=== PATIENT | male | born 1980 | race Caucasian/White ===

== ENCOUNTER 2020-11-02 21:18 | Inpatient (IN) ==
[2020-11-02] MEDS ORDERED: SODIUM CHLORIDE 0.9% 1,000 ML IV STA (21:41)
[2020-11-02] MEDS ORDERED: THIAMINE 200 MG/2 ML VIAL IV STA (21:41)
[2020-11-02] MEDS ORDERED: LORazepam 2 MG/1 ML VIAL IV STA (21:42)
[2020-11-02 22:22] LABS: Basophils # 0.1 10*3/uL (0.0-0.2); Basophils % 1.1 % (0.0-0.8); Eosinophils # 0.1 10*3/uL (0.0-0.87); Eosinophils % 1.9 % (0.00-10.9); Hematocrit 42.7 VOL% (42.0-52.0); Hemoglobin 14.4 GM/DL (14.0-18.0); Immature Granulocytes % 0.4 %; Immature Granulocytes Absolute 0.02 #; Lymphocytes # 1.3 10*3/uL (1.4-4.0); Lymphocytes % 26.7 % (21.2-54.2); Mean Corpuscular HGB Conc 33.7 GM/DL (32-36); Mean Corpuscular Volume 97.9 FL (87-102); Mean Platelet Volume 10.2 FL (9.6-12.0); Monocytes % 7.6 % (1.7-12.7); Neutrophils % 62.3 % (38.7-73.9); Platelet Count 126 T/CUMM (130-400); Red Blood Count 4.36 MC/CUMM (3.8-5.5); Red Cell Distribution Width 13.3 % (9.3-17.3); White Blood Count 4.8 T/CUMM (4-12)
[2020-11-02 22:39] LABS: Albumin 4.1 G/DL (3.4-5.0); Bilirubin,Total 2.1 MG/DL (0.2-1.0); Osmolality,Calculated 264.5 MOS/KG (273-304); Potassium 3.2 MMOL/L (3.5-5.1); Total Protein 8.7 G/DL (6.4-8.2)
[2020-11-02 22:40] LABS: Bilirubin,Urine Moderate mg/dL (Negative); Blood, Urine Moderate mg/dL (Negative); Glucose,Urine (UA) Negative (Negative); Hyaline Casts,Urine 48 /LPF (0-3); Ketones,Urine 5 mg/dL (Negative); Mucus,Urine Many /LPF (Occasional); Nitrite,Urine Negative (Negative); Protein,Urine 100 MG/DL; RBC,Urine 4 /HPF (0-4); Squamous Epithelial Cell,Urine Occasional /HPF (0-10); Urine Appearance Slightly Hazy (Clear); Urine Color Amber (Yellow); Urine Specific Gravity 1.031 (1.001-1.035); WBC,Urine 12 /HPF (0-6)
[2020-11-02 22:44] LABS: Barbiturates Screen,Urine Negative (Negative); Benzodiazepines Screen,Urine Negative (Negative); Cannabinoid Screen,Urine Negative (Negative); Opiate Screen,Urine Positive (Negative); Phencyclidine Screen,Urine Negative (Negative)
[2020-11-02] MEDS ORDERED: MAGNESIUM SULF RIDER 2 GM in PREMIX 1 EACH IV STA (22:46)
[2020-11-03] MEDS ORDERED: GLUCAGON 1 MG VIAL IM PRN (01:23)
[2020-11-03] MEDS ORDERED: METHOCARBAMOL 750 MG TABLET PO PRN (01:23)
[2020-11-03] MEDS ORDERED: DEXTROSE 50% 25 GM/50 ML VIAL IV PRN (01:23)
[2020-11-03] MEDS ORDERED: ACETAMINOPHEN 325 MG TABLET PO PRN (01:23)
[2020-11-03] MEDS ORDERED: DICYCLOMINE 10 MG CAPSULE PO PRN (01:23)
[2020-11-03] MEDS ORDERED: ONDANSETRON 4 MG/2 ML VIAL IV PRN (01:23)
[2020-11-03] MEDS ORDERED: LACTULOSE 20 GM/30 ML UDCUP PO ONE (01:30)
[2020-11-03] MEDS ORDERED: POTASSIUM CHLORIDE 20 MEQ TABLET PO ONE ×2 (01:32→09:00)
[2020-11-03] MEDS ORDERED: POTASSIUM CHLORIDE 20 MEQ TABLET PO PRN (01:32)
[2020-11-03] MEDS: chlordiazePOXIDE 25 MG CAPSULE PO SCH ×4 (02:29→21:20)
[2020-11-03] MEDS: ENOXAPARIN 40 MG/0.4 ML SYRINGE SUBCUT SCH (02:29)
[2020-11-03 07:45] LABS: Albumin 3.5 G/DL (3.4-5.0); Bilirubin,Total 1.7 MG/DL (0.2-1.0); Calcium 8.2 MG/DL (8.5-10.1); Osmolality,Calculated 267.2 MOS/KG (273-304); Total Protein 7.7 G/DL (6.4-8.2)
[2020-11-03] MEDS ORDERED: MAGNESIUM SULF RIDER 2 GM in PREMIX 1 EACH IV ONE (07:50)
[2020-11-03] MEDS: MULTIVITAMIN (CENTRUM) TABLET PO SCH (08:55)
[2020-11-03] MEDS: PANTOPRAZOLE 40 MG TABLET PO SCH (08:55)
[2020-11-03] MEDS: FOLIC ACID 1 MG TABLET PO SCH (08:55)
[2020-11-03] MEDS: LORazepam 2 MG/1 ML VIAL IV PRN ×2 (08:55→15:24)
[2020-11-03] MEDS: THIAMINE 100 MG TABLET PO SCH (08:55)
[2020-11-03] MEDS: LACTULOSE 20 GM/30 ML UDCUP PO SCH ×3 (10:14→21:20)
[2020-11-04] MEDS: LORazepam 2 MG/1 ML VIAL IV PRN ×3 (01:59→18:05)
[2020-11-04] MEDS: chlordiazePOXIDE 25 MG CAPSULE PO SCH ×3 (01:59→17:42)
[2020-11-04 06:01] LABS: Basophils % 1.1 % (0.0-0.8); Eosinophils # 0.1 10*3/uL (0.0-0.87); Eosinophils % 3.1 % (0.00-10.9); Hematocrit 39.5 VOL% (42.0-52.0); Hemoglobin 13.4 GM/DL (14.0-18.0); Immature Granulocytes % 0.6 %; Immature Granulocytes Absolute 0.02 #; Lymphocytes # 0.9 10*3/uL (1.4-4.0); Lymphocytes % 25.6 % (21.2-54.2); Mean Corpuscular HGB Conc 33.9 GM/DL (32-36); Mean Corpuscular Volume 96.8 FL (87-102); Mean Platelet Volume 10.2 FL (9.6-12.0); Monocytes % 9.4 % (1.7-12.7); Neutrophils % 60.2 % (38.7-73.9); Platelet Count 109 T/CUMM (130-400); Red Blood Count 4.08 MC/CUMM (3.8-5.5); Red Cell Distribution Width 13.2 % (9.3-17.3); White Blood Count 3.5 T/CUMM (4-12)
[2020-11-04 06:16] LABS: Albumin 3.4 G/DL (3.4-5.0); Bilirubin,Total 1.4 MG/DL (0.2-1.0); Calcium 8.7 MG/DL (8.5-10.1); Potassium 3.1 MMOL/L (3.5-5.1); Total Protein 7.5 G/DL (6.4-8.2)
[2020-11-04] MEDS: PANTOPRAZOLE 40 MG TABLET PO SCH (08:32)
[2020-11-04] MEDS: LACTULOSE 20 GM/30 ML UDCUP PO SCH ×3 (08:32→21:13)
[2020-11-04] MEDS: FOLIC ACID 1 MG TABLET PO SCH (08:32)
[2020-11-04] MEDS: THIAMINE 100 MG TABLET PO SCH (08:33)
[2020-11-04] MEDS: MULTIVITAMIN (CENTRUM) TABLET PO SCH (08:33)
[2020-11-04] MEDS: ENOXAPARIN 40 MG/0.4 ML SYRINGE SUBCUT SCH (08:35)
[2020-11-04] MEDS ORDERED: LORazepam 2 MG/1 ML VIAL IV ONE (09:00)
[2020-11-04] MEDS ORDERED: POTASSIUM CHLORIDE 20 MEQ TABLET PO ONE (09:00)
[2020-11-04] MEDS: ESCITALOPRAM 10 MG TABLET PO SCH (10:08)
[2020-11-04] MEDS: amLODIPine 10 MG TABLET PO SCH (14:38)
[2020-11-04] MEDS: ATORVASTATIN 20 MG TABLET PO SCH (14:38)
[2020-11-04] MEDS: METOPROLOL SUCCINATE XL 50 MG TABLET PO SCH (14:38)
[2020-11-05] MEDS: chlordiazePOXIDE 25 MG CAPSULE PO SCH ×3 (01:31→18:01)
[2020-11-05 06:06] LABS: Basophils % 0.8 % (0.0-0.8); Eosinophils # 0.1 10*3/uL (0.0-0.87); Hematocrit 40.1 VOL% (42.0-52.0); Hemoglobin 13.7 GM/DL (14.0-18.0); Immature Granulocytes % 1.3 %; Immature Granulocytes Absolute 0.05 #; Lymphocytes # 0.9 10*3/uL (1.4-4.0); Lymphocytes % 23.4 % (21.2-54.2); Mean Corpuscular HGB Conc 34.2 GM/DL (32-36); Mean Corpuscular Volume 95.9 FL (87-102); Mean Platelet Volume 10.4 FL (9.6-12.0); Monocytes % 11.3 % (1.7-12.7); Neutrophils % 60.2 % (38.7-73.9); Platelet Count 124 T/CUMM (130-400); Red Blood Count 4.18 MC/CUMM (3.8-5.5); Red Cell Distribution Width 13.3 % (9.3-17.3); White Blood Count 3.7 T/CUMM (4-12)
[2020-11-05 06:37] LABS: Osmolality,Calculated 271.8 MOS/KG (273-304); Potassium 3.8 MMOL/L (3.5-5.1)
[2020-11-05] MEDS: ESCITALOPRAM 10 MG TABLET PO SCH (09:12)
[2020-11-05] MEDS: ATORVASTATIN 20 MG TABLET PO SCH (09:12)
[2020-11-05] MEDS: PANTOPRAZOLE 40 MG TABLET PO SCH (09:12)
[2020-11-05] MEDS: METOPROLOL SUCCINATE XL 50 MG TABLET PO SCH (09:12)
[2020-11-05] MEDS: MULTIVITAMIN (CENTRUM) TABLET PO SCH (09:12)
[2020-11-05] MEDS: FOLIC ACID 1 MG TABLET PO SCH (09:12)
[2020-11-05] MEDS: LACTULOSE 20 GM/30 ML UDCUP PO SCH ×3 (09:12→20:29)
[2020-11-05] MEDS: ENOXAPARIN 40 MG/0.4 ML SYRINGE SUBCUT SCH (09:12)
[2020-11-05] MEDS: THIAMINE 100 MG TABLET PO SCH (09:13)
[2020-11-05] MEDS: amLODIPine 10 MG TABLET PO SCH (09:13)
[2020-11-05] MEDS: LORazepam 2 MG/1 ML VIAL IV PRN ×4 (09:36→23:43)
[2020-11-06 06:03] LABS: Calcium 8.9 MG/DL (8.5-10.1); Potassium 3.2 MMOL/L (3.5-5.1)
[2020-11-06] MEDS ORDERED: POTASSIUM CHLORIDE 20 MEQ TABLET PO ONE (07:07)
[2020-11-06] MEDS: FOLIC ACID 1 MG TABLET PO SCH (08:54)
[2020-11-06] MEDS: PANTOPRAZOLE 40 MG TABLET PO SCH (08:54)
[2020-11-06] MEDS: MULTIVITAMIN (CENTRUM) TABLET PO SCH (08:54)
[2020-11-06] MEDS: LACTULOSE 20 GM/30 ML UDCUP PO SCH ×3 (08:55→21:17)
[2020-11-06] MEDS: ATORVASTATIN 20 MG TABLET PO SCH (08:55)
[2020-11-06] MEDS: METOPROLOL SUCCINATE XL 50 MG TABLET PO SCH (08:55)
[2020-11-06] MEDS: ESCITALOPRAM 10 MG TABLET PO SCH (08:55)
[2020-11-06] MEDS: amLODIPine 10 MG TABLET PO SCH (08:55)
[2020-11-06] MEDS: THIAMINE 100 MG TABLET PO SCH (08:55)
[2020-11-06] MEDS: LORazepam 2 MG/1 ML VIAL IV PRN ×3 (08:56→16:11)
[2020-11-06] MEDS: ENOXAPARIN 40 MG/0.4 ML SYRINGE SUBCUT SCH (08:56)
[2020-11-07] MEDS: LORazepam 2 MG/1 ML VIAL IV PRN ×5 (01:49→20:43)
[2020-11-07 05:27] LABS: Basophils % 0.7 % (0.0-0.8); Eosinophils # 0.1 10*3/uL (0.0-0.87); Hematocrit 39.3 VOL% (42.0-52.0); Hemoglobin 13.3 GM/DL (14.0-18.0); Immature Granulocytes Absolute 0.04 #; Lymphocytes # 0.9 10*3/uL (1.4-4.0); Lymphocytes % 21.2 % (21.2-54.2); Mean Corpuscular HGB Conc 33.8 GM/DL (32-36); Mean Platelet Volume 9.8 FL (9.6-12.0); Monocytes % 18.7 % (1.7-12.7); Neutrophils % 56.4 % (38.7-73.9); Platelet Count 165 T/CUMM (130-400); Red Blood Count 4.05 MC/CUMM (3.8-5.5); Red Cell Distribution Width 13.6 % (9.3-17.3)
[2020-11-07 05:50] LABS: Atypical Lymphocytes Few; Band Neutrophils 3 % (0-10); Eosinophils 5 % (0-10); Lymphocytes 24 % (20-55); Segmented Neutrophils 50 % (50-85); Total Cells Counted 100
[2020-11-07 05:51] LABS: Hypochromasia 1+; Macrocytosis Slight
[2020-11-07 06:03] LABS: Calcium 8.9 MG/DL (8.5-10.1); Osmolality,Calculated 273.7 MOS/KG (273-304); Potassium 3.5 MMOL/L (3.5-5.1)
[2020-11-07] MEDS: ESCITALOPRAM 10 MG TABLET PO SCH (08:01)
[2020-11-07] MEDS: METOPROLOL SUCCINATE XL 50 MG TABLET PO SCH (08:01)
[2020-11-07] MEDS: FOLIC ACID 1 MG TABLET PO SCH (08:01)
[2020-11-07] MEDS: MULTIVITAMIN (CENTRUM) TABLET PO SCH (08:01)
[2020-11-07] MEDS: THIAMINE 100 MG TABLET PO SCH (08:01)
[2020-11-07] MEDS: amLODIPine 10 MG TABLET PO SCH (08:01)
[2020-11-07] MEDS: PANTOPRAZOLE 40 MG TABLET PO SCH (08:02)
[2020-11-07] MEDS: ENOXAPARIN 40 MG/0.4 ML SYRINGE SUBCUT SCH (08:02)
[2020-11-07] MEDS: ATORVASTATIN 20 MG TABLET PO SCH (08:03)
[2020-11-07] MEDS: LACTULOSE 20 GM/30 ML UDCUP PO SCH ×3 (08:03→20:45)
[2020-11-07] MEDS ORDERED: POTASSIUM CHLORIDE 20 MEQ TABLET PO ONE (12:00)
[2020-11-08 05:51] LABS: Albumin 3.3 G/DL (3.4-5.0); Bilirubin,Total 0.8 MG/DL (0.2-1.0); Calcium 8.8 MG/DL (8.5-10.1); Osmolality,Calculated 271.8 MOS/KG (273-304); Potassium 3.6 MMOL/L (3.5-5.1); Total Protein 7.6 G/DL (6.4-8.2)
[2020-11-08] MEDS: METOPROLOL SUCCINATE XL 50 MG TABLET PO SCH (08:14)
[2020-11-08] MEDS: ESCITALOPRAM 10 MG TABLET PO SCH (08:14)
[2020-11-08] MEDS: PANTOPRAZOLE 40 MG TABLET PO SCH (08:14)
[2020-11-08] MEDS: ATORVASTATIN 20 MG TABLET PO SCH (08:14)
[2020-11-08] MEDS: LACTULOSE 20 GM/30 ML UDCUP PO SCH (08:14)
[2020-11-08] MEDS: FOLIC ACID 1 MG TABLET PO SCH (08:14)
[2020-11-08] MEDS: MULTIVITAMIN (CENTRUM) TABLET PO SCH (08:14)
[2020-11-08] MEDS: THIAMINE 100 MG TABLET PO SCH (08:14)
[2020-11-08] MEDS: amLODIPine 10 MG TABLET PO SCH (08:14)
[2020-11-08] MEDS: LORazepam 2 MG/1 ML VIAL IV PRN ×2 (08:15→11:32)
[2020-11-08] MEDS: ENOXAPARIN 40 MG/0.4 ML SYRINGE SUBCUT SCH (08:15)
[2020-11-08] MEDS ORDERED: guaiFENesin/DM ER 600-30 MG TABLET PO PRN (08:20)
[2020-11-08 11:40] VITALS: BP 164/91
== END 2020-11-08 12:40 | DRG 897 ==
LOC: N.ED 21:18 → N.EDINP 11-03 01:23 → SUATTDRO 11-03 01:23 → N.5E 11-03 02:08
PROVIDERS: ADMIT Internal Medicine; ATTEND Family Medicine